=== PATIENT | male | born 1955 | race Caucasian/White ===

== ENCOUNTER 2022-08-06 10:48 | Emergency (ER) | payer MEDICARE, MEDICAID ==
[2022-08-06 11:14] VITALS: BP 139/85; PULSE 88
== END 2022-08-06 12:30 | disposition home or self-care (01) ==
LOC: JP.ED 10:48
DX: U07.1 COVID-19 (principal); E78.00 Pure hypercholesterolemia, unspecified; I10 Essential (primary) hypertension; E66.9 Obesity, unspecified; Z68.38 Body mass index [BMI] 38.0-38.9, adult; Z79.899 Other long term (current) drug therapy; Z87.891 Personal history of nicotine dependence
CPT/HCPCS: 99283; U0002